=== PATIENT | female | born 1935 | race Caucasian/White ===

== ENCOUNTER 2016-10-29 11:13 | Emergency (ER) | payer OTHER ==
[~2016-10-29] VITALS: Ht 152.4 cm; Wt 70.9 kg
[~2016-10-29 11:13] MED LIST: ANASTROZOLE1 MG PO; ASPIRIN E.C.81 M1 PO; ASPIRIN81 M1 PO; Aspirin E.C. PO; Ativan PO; BENTYL10 MG PO; BENZONATATE100 MG PO; CALCIUM 600 +1 EAC6 PO; CALCIUM 600 +1 EACH PO; CALCIUM500 M2 PO; CALCIUM500 M4 PO; CALCIUM600 MG PO; CALTRATE 6001 TABLE1 PO; CARBIDOPA-LEVO1 EAC3 PO; CARBIDOPA/LEVO1 EACH PO; CILOSTAZOL50 MG PO; CIPROFLOXACIN250 MG PO; COLACE100 MG PO; COMTAN200 MG PO; Cipro PO; Colace PO; DEPAKOTE ER250 MG PO; DEPAKOTE125 MG PO; DEPAKOTE250 MG PO; DETROL LA4 MG PO; Depakote PO; Ditropan PO; EFFEXOR XR75 MG PO; EFFEXOR75 MG PO; ENDOCET 5-3251 EACH PO; Effexor PO; FLEXERIL5 MG PO; FLUDROCORTISON0.1 M1 PO; Flexeril PO; Florinef Acetate PO; GABAPENTIN100 MG PO; GABAPENTIN300 MG PO; HYDROCODON-ACE1 EAC7 PO; HYDROXYZINE PAM25 M1 PO; ISOSORBIDE DINI30 MG PO; LEVAQUIN250 MG PO; LEVOTHYROXINE25 MCG PO; LORTAB 5-325 M1 EACH PO; Levothroid,Synthroid PO; Lidoderm 5% Patch TD; MEDROL DOSEPAK4 MG PO; MIDODRINE HCL10 MG PO; MIRALAX17 GM PO; MOBIC15 MG PO; Macrodantin PO; Miralax, Glycolax PO; NEURONTIN300 MG PO; Neurontin PO; OXYBUTYNIN CHLOR5 MG PO; OXYCODONE HCL5 MG PO; OXYCODONE-APAP1 EAC6 PO; Oscal 500 w/Vitamin PO; PARCOPA PO; PERCOCET 5/31 TABLET PO; PLAVIX75 MG PO; PLETAL50 MG PO; PRAVACHOL40 MG PO; PREDNISONE10 MG PO; PRIMIDONE50 MG PO; PROAMATINE10 MG PO; PROAMATINE5 M1 PO; PROTONIX40 MG PO; Percocet 5/325,Endoc PO; Plavix PO; Protonix PO; ROXICET 5-3251 EACH PO; SINEMET 25-1001 EACH PO; SINEMET 25-11 TABLET PO; STOOL SOFTENER1 EAC2 PO; STOOL SOFTENER100 MG PO; SYNTHROID100 MCG PO; SYNTHROID25 MCG PO; Senokot S,Pericolace PO; Senokot,Sennagen PO; Sinemet 25-100 PO; TIROSINT25 MCG PO; TOPIRAMATE25 MG PO; TOPROL XL50 MG PO; TRAMADOL HCL50 MG PO; TYLENOL EXTRA500 MG; TYLENOL EXTRA500 MG PO; TYLENOL325 M1 PO; Theragran PO; Tums PO; Tylenol Extra Streng PO; Tylenol Regular Stre PO; ULTRAM50 MG PO; VENLAFAXINE HCL75 MG PO; VESICARE5 MG PO; VIT B 12 PO; VITAMIN B-12250 MCG PO; VITAMIN B-12500 MC2 PO; VITAMIN B12-FO1 EACH PO; Vicodin,Lortab 5/500 PO; Vitamin B-12 PO; Vitamin D, Drisdol PO; WELCHOL625 MG PO; XANAX0.5 MG PO; ZETIA10 MG PO
[2016-10-29 12:56] LABS: MCH 30.4 PG (29.0-34.0); MCHC 33.2 G/DL (30.0-36.0); MCV 91.5 FL (83-99); MEAN PLAT.VOLUME 9.2 uM^3 (9.5-12.4); PLATELET COUNT 330 K/uL (156-360); RBC DIS.WIDTH-CV 14.4 % (11.8-14.6); RBC DIS.WIDTH-SD 46.9 % (39-53); RED BLOOD COUNT 4.48 M/uL (3.80-5.20); WHITE BLOOD COUNT 6.8 K/uL (4.1-10.2)
[2016-10-29 13:09] LABS: CHLORIDE 105 mEq/L (99-109); POTASSIUM 3.7 mEq/L (3.7-5.4); SODIUM 136 mEq/L (136-147)
[2016-10-29 13:11] LABS: GLUCOSE 151 mg/dL (70-99)
[2016-10-29 13:12] LABS: ANION GAP 10 MEQ/L (2-14)
[2016-10-29 13:15] LABS: GFR ESTIMATE (CALCULATED) 42 mL/min/
[2016-10-29 13:16] LABS: UREA NITROGEN (BUN) 20 mg/dL (9-23)
[2016-10-29 13:22] LABS: TROP-I INTERPRETATION NEGATIVE; TROPONIN-I 0.01 ng/mL (0.0-0.30)
[2016-10-29 15:07] LABS: ADD MIUA? YES; BILIRUBIN SMALL; BLOOD NEGATIVE; COLOR YELLOW ((YELLOW)); GLUCOSE (STRIP) NEGATIVE; KETONES TRACE; LEUKOCYTES SMALL; NITRITE POSITIVE; PROTEIN (STRIP) >=300; SPECIFIC GRAVITY 1.024 (1.000-1.030)
[2016-10-29] MEDS ORDERED: VALIUM2 MG PO (15:16)
[2016-10-29 15:21] VITALS: BP 126/49
[2016-10-29 15:27] LABS: RED BLOOD CELLS NONE SEEN /HPF (0-5)
[2016-10-29 15:28] LABS: BACTERIA 4+; EPITHELIAL CELLS RARE; MUCUS NONE SEEN; UCUL ADDED? YES
[2016-10-29 15:29] LABS: CASTS PRESENT /LPF; CRYSTALS NONE SEEN; HYALINE CASTS 0-5 /LPF
== END 2016-10-29 15:25 | disposition home or self-care (01) ==
LOC: EME 11:13
PROVIDERS: Emergency Medicine
DX: S16.1XXA Strain of muscle, fascia and tendon at neck level, initial encounter (principal); W18.30XA Fall on same level, unspecified, initial encounter; G89.29 Other chronic pain; I10 Essential (primary) hypertension; I25.2 Old myocardial infarction; K21.9 Gastro-esophageal reflux disease without esophagitis; R56.9 Unspecified convulsions; Z86.73 Personal history of transient ischemic attack (TIA), and cerebral infarction without residual deficits; G20 Parkinson's disease; E03.9 Hypothyroidism, unspecified; Z85.3 Personal history of malignant neoplasm of breast; Z85.118 Personal history of other malignant neoplasm of bronchus and lung; Z85.830 Personal history of malignant neoplasm of bone
CPT/HCPCS: 70450; 71020; 80048; 81003; 84484; 85027; 87077; 87086; 87186; 93005; 99281; 99284

== ENCOUNTER 2016-12-30 14:04 | Inpatient (IN) | payer OTHER ==
[~2016-12-30] VITALS: Ht 152.4 cm; Wt 74.7 kg
[~2016-12-30 14:04] MED LIST changes: +VALIUM2 MG PO
[2016-12-30] MEDS ORDERED: DURAGESIC12 MCG TD (14:29)
[2016-12-30] MEDS ORDERED: OXAYDO5 MG PO ×2 (14:32→16:24)
[2016-12-30] MEDS ORDERED: BUPROPION HCL100 M1 PO (14:32)
[2016-12-30] MEDS ORDERED: RANITIDINE HCL150 M1 PO (14:33)
[2016-12-30 14:50] LABS: EOSINOPHIL (%) 1.9 % (0-5); EOSINOPHIL COUNT 0.1 K/uL (0-0.3); IMMATURE GRANULOCYTE (%) 0.1 % (0.0-0.7); INSTRUMENT ABS NEUTROPHIL CT 4.1 K/uL; LYMPHOCYTE COUNT 1.9 K/uL (1.0-2.8); MCH 30.7 PG (29.0-34.0); MCHC 32.8 G/DL (30.0-36.0); MCV 93.5 FL (83-99); MEAN PLAT.VOLUME 9.1 uM^3 (9.5-12.4); MONOCYTE (%) 8.7 % (3-12); MONOCYTE COUNT 0.6 K/uL (0-0.8); NEUTROPHIL (%) 60.7 % (45-76); NEUTROPHIL COUNT 4.1 K/uL (1.8-6.4); PLATELET COUNT 294 K/uL (156-360); RBC DIS.WIDTH-CV 13.7 % (11.8-14.6); RBC DIS.WIDTH-SD 47.2 % (39-53); RED BLOOD COUNT 4.17 M/uL (3.80-5.20); WHITE BLOOD COUNT 6.8 K/uL (4.1-10.2)
[2016-12-30 15:07] LABS: CHLORIDE 107 mEq/L (99-109); POTASSIUM 4.4 mEq/L (3.7-5.4); SODIUM 139 mEq/L (136-147)
[2016-12-30 15:09] LABS: GLUCOSE 91 mg/dL (70-99)
[2016-12-30 15:11] LABS: ANION GAP 11 MEQ/L (2-14)
[2016-12-30 15:13] LABS: GFR ESTIMATE (CALCULATED) 46 mL/min/; TROP-I INTERPRETATION NEGATIVE; TROPONIN-I < 0.01 ng/mL (0.0-0.30)
[2016-12-30 15:14] LABS: UREA NITROGEN (BUN) 25 mg/dL (9-23)
[2016-12-30] MEDS ORDERED: OXYCONTIN10 MG PO (16:29)
[2016-12-30] MEDS ORDERED: DEPAKOTE ER250 MG PO (17:06)
[2016-12-30 19:32] VITALS: BP 121/61
[2016-12-30 21:17] LABS: TROP-I INTERPRETATION NEGATIVE; TROPONIN-I < 0.01 ng/mL (0.0-0.30)
[2016-12-31] VITALS (8 sets, daily range): BP systolic 120–181; BP diastolic 65–84
[2016-12-31 02:29] LABS: METH RESISTANT S AUREUS PCR NEGATIVE (NEGATIVE)
[2016-12-31 02:31] LABS: PROBE CHECK PASS; SPECIMEN PROCESSING CONTROL PASS
[2016-12-31 03:36] LABS: TROP-I INTERPRETATION NEGATIVE; TROPONIN-I < 0.01 ng/mL (0.0-0.30)
[2016-12-31 03:48] LABS: ADD MIUA? YES; BILIRUBIN NEGATIVE; BLOOD NEGATIVE; COLOR YELLOW ((YELLOW)); GLUCOSE (STRIP) NEGATIVE; KETONES 5; LEUKOCYTES TRACE; NITRITE POSITIVE; PROTEIN (STRIP) 100; SPECIFIC GRAVITY 1.019 (1.000-1.030); UROBILINOGEN 0.2 MG/DL (0.2-1.0)
[2016-12-31 04:21] LABS: BACTERIA 3+ /HPF; EPITHELIAL CELLS RARE /HPF; HYALINE CASTS 0-5 /LPF; MUCUS TRACE /LPF; RED BLOOD CELLS 0-5 /HPF (0-5); WHITE BLOOD CELLS 0-5 /HPF (0-5)
[2016-12-31 08:16] LABS: ANION GAP 10 MEQ/L (2-14); CHLORIDE 107 MEQ/L (99-109); GFR ESTIMATE (CALCULATED) 42 mL/min/; GLUCOSE 83 mg/dL (70-99); POTASSIUM 4.2 MEQ/L (3.7-5.4); SAMPLE HEMOLYSIS CHECK 0; SAMPLE ICTERIC CHECK 0; SAMPLE LIPEMIA CHECK 0; SODIUM 140 MEQ/L (136-147); UREA NITROGEN (BUN) 24 mg/dL (9-23)
[2017-01-01 04:00] VITALS: BP 118/80
[2017-01-01 08:30] VITALS: BP 134/72
[2017-01-01 11:34] VITALS: BP 127/72
[2017-01-01 15:55] VITALS: BP 147/70
[2017-01-01 20:39] VITALS: BP 153/67
[2017-01-02 00:09] VITALS: BP 181/83
[2017-01-02 08:01] VITALS: BP 131/75
[2017-01-02 15:57] VITALS: BP 139/74
[2017-01-03 00:02] VITALS: BP 146/76
[2017-01-03 07:51] VITALS: BP 129/80
[2017-01-03] MEDS ORDERED: DIVALPROEX SOD500 M1 PO (13:27)
[2017-01-03] MEDS ORDERED: CIPRO500 MG PO (13:29)
[2017-01-03 15:41] VITALS: BP 130/76
== END 2017-01-03 18:25 | DRG 312 ==
LOC: EME 14:04 → 5WEST 16:54 → EDOF 16:54 → 5WEST 19:27 → 3EAST 12-31 16:08 → 5WEST 12-31 16:08 → 3EAST 01-01 15:22
PROVIDERS: Emergency Medicine; Internal Medicine; Student in an Organized Health Care Education/Training Program
DX: I95.1 Orthostatic hypotension (principal); N39.0 Urinary tract infection, site not specified; S46.011A Strain of muscle(s) and tendon(s) of the rotator cuff of right shoulder, initial encounter; Z85.3 Personal history of malignant neoplasm of breast; W19.XXXA Unspecified fall, initial encounter; G89.29 Other chronic pain; I10 Essential (primary) hypertension; F32.9 Major depressive disorder, single episode, unspecified; R51 Headache; R29.6 Repeated falls; M25.511 Pain in right shoulder; E86.0 Dehydration; I25.10 Atherosclerotic heart disease of native coronary artery without angina pectoris; G20 Parkinson's disease; E03.9 Hypothyroidism, unspecified; I25.2 Old myocardial infarction; G40.909 Epilepsy, unspecified, not intractable, without status epilepticus; K21.9 Gastro-esophageal reflux disease without esophagitis; Z88.0 Allergy status to penicillin; Z88.1 Allergy status to other antibiotic agents; Z88.2 Allergy status to sulfonamides; Z88.4 Allergy status to anesthetic agent; Z85.830 Personal history of malignant neoplasm of bone; Z86.73 Personal history of transient ischemic attack (TIA), and cerebral infarction without residual deficits; Y99.9 Unspecified external cause status; Y92.019 Unspecified place in single-family (private) house as the place of occurrence of the external cause
CPT/HCPCS: 70450; 71010; 73030; 73221; 80048; 80164; 81003; 82306; 84484; 85025; 87641; 93005; 93880; 97530 GP; 99281; 99285; G0008; G0378; J0696; J0744; J1644; J2270; J3010; J7030; J7050

== ENCOUNTER 2017-08-18 10:52 | Day surgery (SDC) | payer OTHER ==
[~2017-08-18] VITALS: Ht 152.4 cm; Wt 72.6 kg
[~2017-08-18 10:52] MED LIST changes: +BUPROPION HCL100 M1 PO; +CIPRO500 MG PO; +DIVALPROEX SOD500 M1 PO; +DURAGESIC12 MCG TD; +OXAYDO5 MG PO; +OXYCONTIN10 MG PO; +RANITIDINE HCL150 M1 PO
== END 2017-08-18 12:50 | disposition home or self-care (01) ==
LOC: PAIN 10:52
PROC: BQ101ZZ Fluoroscopy of Right Hip using Low Osmolar Contrast (ICD-10-PCS; principal; 2017-08-18)
PROC: 3E0U3BZ Introduction of Anesthetic Agent into Joints, Percutaneous Approach (ICD-10-PCS; principal; 2017-08-18)
PROC: BQ111ZZ Fluoroscopy of Left Hip using Low Osmolar Contrast (ICD-10-PCS; principal; 2017-08-18)
PROC: 3E0U33Z Introduction of Anti-inflammatory into Joints, Percutaneous Approach (ICD-10-PCS; principal; 2017-08-18)
DX: M16.0 Bilateral primary osteoarthritis of hip (principal); M47.26 Other spondylosis with radiculopathy, lumbar region; R26.2 Difficulty in walking, not elsewhere classified; M25.561 Pain in right knee; M25.562 Pain in left knee; G40.909 Epilepsy, unspecified, not intractable, without status epilepticus; K21.9 Gastro-esophageal reflux disease without esophagitis; E78.5 Hyperlipidemia, unspecified; E03.9 Hypothyroidism, unspecified; G20 Parkinson's disease; I25.10 Atherosclerotic heart disease of native coronary artery without angina pectoris; Z85.118 Personal history of other malignant neoplasm of bronchus and lung; Z88.0 Allergy status to penicillin; Z85.3 Personal history of malignant neoplasm of breast; Z88.2 Allergy status to sulfonamides; Z79.891 Long term (current) use of opiate analgesic; Z79.02 Long term (current) use of antithrombotics/antiplatelets; Z86.73 Personal history of transient ischemic attack (TIA), and cerebral infarction without residual deficits; I25.2 Old myocardial infarction
CPT/HCPCS: J1030; J2250; J3010; S0020

== ENCOUNTER 2017-11-22 09:26 | Observation (INO) | payer OTHER ==
[~2017-11-22] VITALS: Ht 152.4 cm; Wt 72.7 kg
[~2017-11-22 09:26] MED LIST changes: -OXYCONTIN10 MG PO; +OXYCONTIN15 MG PO; +SYNTHROID50 MCG PO
[2017-11-22 10:06] LABS: HEMATOCRIT 37.2 % (36.0-46.0); HEMOGLOBIN 12.8 G/DL (11.9-15.5); MCH 32.2 PG (29.0-34.0); MCHC 34.4 G/DL (30.0-36.0); MCV 93.7 FL (83-99); PLATELET COUNT 366 K/uL (156-360); RBC DIS.WIDTH-CV 13.1 % (11.8-14.6); RBC DIS.WIDTH-SD 45.2 % (39-53); RED BLOOD COUNT 3.97 M/uL (3.80-5.20); WHITE BLOOD COUNT 8.2 K/uL (4.1-10.2)
[2017-11-22 10:13] LABS: CHLORIDE 102 mEq/L (99-109); POTASSIUM 4.6 mEq/L (3.7-5.4); SODIUM 138 mEq/L (136-147)
[2017-11-22 10:15] LABS: GLUCOSE 106 mg/dL (70-99)
[2017-11-22 10:19] LABS: CREATININE 1.4 mg/dL (0.6-1.3); GFR ESTIMATE (CALCULATED) 38 mL/min/
[2017-11-22 10:20] LABS: UREA NITROGEN (BUN) 26 mg/dL (9-23)
[2017-11-22 10:25] LABS: TROP-I INTERPRETATION NEGATIVE; TROPONIN-I < 0.01 ng/mL (0.0-0.30)
[2017-11-22] MEDS ORDERED: CALCIUM 500 MG1 EACH PO (13:48)
[2017-11-22] MEDS ORDERED: NORCO 10/3251 TABLET PO (13:48)
[2017-11-22] MEDS ORDERED: DIVALPROEX SOD250 M1 PO (13:49)
[2017-11-22 15:00] VITALS: BP 182/74
[2017-11-22 16:45] LABS: TROP-I INTERPRETATION NEGATIVE; TROPONIN-I 0.01 ng/mL (0.0-0.30)
[2017-11-22 19:00] VITALS: BP 156/70
[2017-11-22 22:26] LABS: TROP-I INTERPRETATION NEGATIVE; TROPONIN-I < 0.01 ng/mL (0.0-0.30)
[2017-11-23] VITALS: BP 177/83
[2017-11-23 03:25] VITALS: BP 118/64
[2017-11-23 05:58] LABS: CHLORIDE 105 MEQ/L (99-109); CREATININE 1.2 MG/DL (0.6-1.3); GFR ESTIMATE (CALCULATED) 46 mL/min/; GLUCOSE 94 mg/dL (70-99); POTASSIUM 4.4 MEQ/L (3.7-5.4); SODIUM 138 MEQ/L (136-147); UREA NITROGEN (BUN) 26 mg/dL (9-23)
[2017-11-23 07:10] VITALS: BP 152/90
[2017-11-23 07:35] VITALS: BP 142/72
[2017-11-23 11:45] VITALS: BP 152/75
== END 2017-11-23 15:14 | disposition home or self-care (01) ==
LOC: EME 09:26 → 5WEST 13:46 → EDOF 13:46 → ENRESERV 13:48 → 5WEST 14:44
PROVIDERS: Internal Medicine
DX: R07.9 Chest pain, unspecified (principal); R06.09 Other forms of dyspnea; G20 Parkinson's disease; G40.909 Epilepsy, unspecified, not intractable, without status epilepticus; I25.10 Atherosclerotic heart disease of native coronary artery without angina pectoris; I25.2 Old myocardial infarction; H91.90 Unspecified hearing loss, unspecified ear; E03.9 Hypothyroidism, unspecified; C79.51 Secondary malignant neoplasm of bone; C78.00 Secondary malignant neoplasm of unspecified lung; Z85.3 Personal history of malignant neoplasm of breast; Z86.73 Personal history of transient ischemic attack (TIA), and cerebral infarction without residual deficits; Z90.49 Acquired absence of other specified parts of digestive tract; Z90.12 Acquired absence of left breast and nipple; Z79.02 Long term (current) use of antithrombotics/antiplatelets; Z79.891 Long term (current) use of opiate analgesic; Z88.0 Allergy status to penicillin; Z88.2 Allergy status to sulfonamides; Z88.5 Allergy status to narcotic agent
CPT/HCPCS: 71046; 71275; 80048; 84484; 85027; 93005; 93306; 94799; 99202; 99281; 99285; G0378; G8978 GP CM; G8979 CJ; G8980 GP CM; G8987 GO CJ; G8988 CI; G8989 CJ; J1644; J7030

== ENCOUNTER 2018-01-24 16:29 | Emergency (ER) | payer OTHER ==
[~2018-01-24] VITALS: Ht 152.4 cm; Wt 72.7 kg
[~2018-01-24 16:29] MED LIST changes: +CALCIUM 500 MG1 EACH PO; +DIVALPROEX SOD250 M1 PO; +NORCO 10/3251 TABLET PO
[2018-01-24 17:22] LABS: HEMATOCRIT 37.8 % (36.0-46.0); HEMOGLOBIN 13.1 G/DL (11.9-15.5); MCH 32.7 PG (29.0-34.0); MCHC 34.7 G/DL (30.0-36.0); MCV 94.3 FL (83-99); RBC DIS.WIDTH-CV 14.9 % (11.8-14.6); RBC DIS.WIDTH-SD 50.8 % (39-53); RED BLOOD COUNT 4.01 M/uL (3.80-5.20); WHITE BLOOD COUNT 3.7 K/uL (4.1-10.2)
[2018-01-24 17:23] LABS: PLATELET COUNT 349 K/uL (156-360)
[2018-01-24 17:35] LABS: ALBUMIN 4.1 g/dL (3.2-4.8)
[2018-01-24 17:36] LABS: CHLORIDE 105 mEq/L (99-109); POTASSIUM 4.1 mEq/L (3.7-5.4); SODIUM 137 mEq/L (136-147)
[2018-01-24 17:38] LABS: GLUCOSE 114 mg/dL (70-99); TOTAL PROTEIN 7.3 g/dL (6.4-8.3)
[2018-01-24 17:40] LABS: TOTAL BILIRUBIN 0.2 mg/dL (0.0-1.0)
[2018-01-24 17:41] LABS: ALKALINE PHOSPHATASE 62 IU/L (3-129)
[2018-01-24 17:42] LABS: CREATININE 1.6 mg/dL (0.6-1.3); GFR ESTIMATE (CALCULATED) 33 mL/min/
[2018-01-24 17:43] LABS: AST (GOT) 19 IU/L (2-34); UREA NITROGEN (BUN) 27 mg/dL (9-23)
[2018-01-24 17:45] LABS: ALT (GPT) 9 IU/L (3-49)
[2018-01-24] MEDS ORDERED: ZOFRAN ODT4 MG PO (22:22)
[2018-01-24 22:48] VITALS: BP 153/74
== END 2018-01-24 22:50 | disposition home or self-care (01) ==
LOC: EME 16:29
DX: R11.2 Nausea with vomiting, unspecified (principal); R19.7 Diarrhea, unspecified; R52 Pain, unspecified; T45.1X5A Adverse effect of antineoplastic and immunosuppressive drugs, initial encounter; C79.51 Secondary malignant neoplasm of bone; Z85.3 Personal history of malignant neoplasm of breast; Z85.118 Personal history of other malignant neoplasm of bronchus and lung; F03.90 Unspecified dementia, unspecified severity, without behavioral disturbance, psychotic disturbance, mood disturbance, and anxiety; G20 Parkinson's disease; E03.9 Hypothyroidism, unspecified; R56.9 Unspecified convulsions; M19.90 Unspecified osteoarthritis, unspecified site; I25.2 Old myocardial infarction; F41.9 Anxiety disorder, unspecified; F32.9 Major depressive disorder, single episode, unspecified; Z86.73 Personal history of transient ischemic attack (TIA), and cerebral infarction without residual deficits; Z90.49 Acquired absence of other specified parts of digestive tract; Z90.12 Acquired absence of left breast and nipple; Z88.5 Allergy status to narcotic agent; Z88.2 Allergy status to sulfonamides; Z88.0 Allergy status to penicillin
CPT/HCPCS: 80053; 81003; 82948; 85027; 99281; 99284; J2405; J7040